=== PATIENT | female | born 1965 | race Caucasian/White ===

== ENCOUNTER → 2022-06-26 07:35 | Outpatient (CLI) | payer MEDICAID, SELFPAY ==
[2022-06-26 21:38] LABS: Phenytoin (Dilantin) 5.7 ug/ml (10-20)
== END ==
PROVIDERS: PCP Family Medicine; Visit Provider Family Medicine
DX: Z51.81 Encounter for therapeutic drug level monitoring (principal); Z79.899 Other long term (current) drug therapy
CPT/HCPCS: 80185